=== PATIENT | male | born 1940 | race Caucasian/White ===

== ENCOUNTER 2019-01-16 10:34 | Outpatient (CLI) | payer MEDICARE, OTHER ==
--- NOTE | 2019-01-16 11:46 | MRI ---
MRI lumbar spine noncontrast: HISTORY: Lumbar spinal stenosis. Low back pain with radiation down both lower extremities. Associated numbness in both feet, x5 years. Worsening symptoms. COMPARISON: None FINDINGS: Appropriate T1 marrow signal intensity of the lumbar vertebra. Vertebral body height is maintained. N o fracture. No significant STIR hyperintensity to suggest vertebral body edema or ligamentous injury. Symmetric signal intensity of the paraspinal muscles. Appropriate signal intensity the visualized tahira id organs. Probable parapelvic cysts in left renal pelvis. Conus medullaris terminates at the upper aspect of L1 T12-L1:No significant central canal stenosis or neural foraminal narrowing. Mild ligamentum flavum th ickening and facet hypertrophy. L1-L2:Mild ligamentum flavum thickening and facet hypertrophy. Minimal generalized disc bulge. Minima l disc desiccation. No significant central canal stenosis. Mild right foraminal narrowing. Left neural foramen is patent. L2-L3:Adequate disc hydration. No significant posterior disc abnormality. No significant central tyrone l stenosis. L3-L4:Adequate disc hydration. Generalized disc bulge, ligament flavum thickening and facet hypertrop hy are present. There is a 5 mm right-sided synovial cyst. The aforementioned degenerative changes and synovial cyst results in severe canal stenosis. Mild to moderate right and mild to moderate left neural foraminal narrowing. L4-L5:5 mm of anterolisthesis of L4 upon L5. Posterior midline annular fissure. Broad-based disc bulg e, ligament flavum thickening and facet hypertrophy result in severe central canal stenosis. Mild to moderate bilateral neural foraminal narrowing. L5-S1:Desiccation without significant loss of disc space height. No significant central canal stenosi s or neural foraminal narrowing. IMPRESSION: 1. Grade 1 anterolisthesis of L4 upon L5. There is severe central canal stenosis at L3-L4 and L4-L5 a s described above. 2. Right-sided synovial cyst at L3-L4 contributing to the overall degree of central canal stenosis. 3. Annular fissure at L4-L5. Transcribed Date/Time: 01/16/2019 11:49 AM
== END 2019-01-16 10:35 | disposition home or self-care (01) ==
LOC: BICMRI 10:34
PROVIDERS: ATTEND Nurse Practitioner Family
DX: M48.062 Spinal stenosis, lumbar region with neurogenic claudication (principal); M43.16 Spondylolisthesis, lumbar region; M71.38 Other bursal cyst, other site; Q05.7 Lumbar spina bifida without hydrocephalus
CPT/HCPCS: 72148